=== PATIENT | female | born 2000 | race Caucasian/White ===

== ENCOUNTER 2021-08-25 08:46 | Emergency (ER) | payer OTHER, SELFPAY ==
[2021-08-25 08:57] VITALS: BP 132/77; PULSE 101; RESP 16; TEMP 37.5; O2SAT 99
--- NOTE | 2021-08-25 09:09 | ED.URI ---
HPI - URI/Sore Throat General Chief Complaint: Upper Respiratory Infection Stated Complaint: sore throat Time Seen by Provider: 08/25/21 09:11 Source: patient and RN notes reviewed Mode of arrival: ambulatory Limitations: no limitations History of Present Illness HPI Narrative: 21-year-old female presents with concern for nasal congestion, rhinorrhea, postnasal drainage, sore throat. Reports 3-day history of symptoms. She denies known sick contacts. She reports she is reports she is taken Sudafed with some relief of nasal congestion. MD elicited complaint: cough and sore throat Related Data Allergies Allergy/AdvReac Type Severity Reaction Status Date / Time SEASONAL ALLERGENS AdvReac Unknown Congested Uncoded 08/25/21 09:19 Review of Systems Review of Systems: CONSTITUTIONAL: Reports malaise. Denies chills, sweats, or fever. EYES: Denies visual changes, redness, or discharge. ENT: Reports rhinorrhea, congestion, sore throat. Denies sinus pain, otalgia CARDIOVASCULAR: Denies chest pain, palpitations, or edema. RESPIRATORY: Denies cough. Denies dyspnea. GASTROINTESTINAL: Denies abdominal pain, nausea, vomiting, diarrhea SKIN: Denies rash or itching. MUSCULOSKELETAL: Denies myalgia. NEUROLOGIC: Denies headache. All systems reviewed & are unremarkable except as noted in HPI and below PMFSH Comments At time of signature, agree with nursing past medical, surgical, social and family history. There is no relevant family history pertinent to the presenting complaint Exam Narrative: GENERAL: Well-appearing, well-nourished, and in no acute distress. HEAD: Normocephalic EYES: PERRLA, conjunctivae clear ENT: Nares clear, turbinates edematous and erythematous, clear discharge. Mucous membranes moist. TM pearly monterroso with sharp light reflex bilaterally; no tragal tenderness. Oropharynx not erythematous without lesions. Tonsils enlarged and without exudate, no drooling, no hoarseness, no trismus, uvula midline. NECK: Supple. No lymphadenopathy CHEST: Clear to auscultation, breath sounds equal. No wheezing, rhonchi, rales, or stridor. No respiratory distress, speaks in full sentences. HEART: Regular rate and rhythm. No murmur heard. SKIN: Warm, dry, no rash. NEURO: Alert and oriented x3. PSYCH: Normal mood and affect Course Course Emergency Course: Patient is aware of diagnosis, understands and agrees to treatment plan. Anticipatory guidance given. Patient agrees to follow-up as directed and is aware of reasons to seek care at the emergency department. Portions of this record may have been created with voice recognition software Level of Care: Express Care Visit Vital Signs Vital signs: Vital Signs Temperature 99.5 F 08/25/21 08:57 Pulse Rate 101 H 08/25/21 08:57 Respiratory Rate 16 08/25/21 08:57 Blood Pressure 132/77 08/25/21 08:57 Pulse Oximetry 99 08/25/21 08:57 Temperature 99.5 F 08/25/21 08:57 Pulse Rate 101 H 08/25/21 08:57 Respiratory Rate 16 08/25/21 08:57 Blood Pressure 132/77 08/25/21 08:57 Pulse Oximetry 99 08/25/21 08:57 Reviewed. MDM - URI/Sore Throat MDM Narrative Medical decision making narrative: Differential diagnosis considered: Crump virus, strep pharyngitis, allergic rhinitis, upper respiratory tract infection, sinusitis, rhinosinusitis, nasopharyngitis. viral pharyngitis, otitis media, otitis externa, pneumonia, bronchitis, viral cough syndrome, viral syndrome, and influenza. Exam findings show no acute concerns or changes; patient is non-toxic appearing and is in no distress. Patient is appropriate for outpatient treatment and follow-up. Lab Data Attestation: I reviewed the patient's lab results. Critical Care Time Critical Care Time Critical Care Time: No Discharge Plan Discharge Clinical Impression: Upper respiratory infection Qualifiers: URI type: unspecified viral URI Qualified Code(s): J06.9 - Acute upper respiratory infection, unspecified Patient Disposi
[2021-08-26 13:42] LABS: SARS-CoV-2 RNA PCR Negative
== END 2021-08-25 09:50 | disposition home or self-care (01) ==
PROVIDERS: Emergency Provider Nurse Practitioner; PCP Family Medicine
DX: J06.9 Acute upper respiratory infection, unspecified (principal); Z20.822 Contact with and (suspected) exposure to COVID-19
CPT/HCPCS: 87081; 87426; 87880; 99213; C9803; G0463; U0003; U0005

== ENCOUNTER 2021-09-12 09:10 | Emergency (ER) | payer OTHER, SELFPAY ==
--- NOTE | ~2021-09-12 | XR_ITS ---
XR foot LT min 3V DATE: 09/12/2021 10:36 INDICATION: Fall today. Left great toe pain TECHNIQUE: 4 views COMPARISON: None FINDINGS: There is a linear oblique fracture through the proximal to mid shaft of the distal phalanx of the first digit, with no displacement or angulation. No other fracture or dislocation, periosteal reaction or bone destruction is detected. IMPRESSION: Linear nondisplaced fracture of the distal phalanx of the first toe Reviewed, dictated and finalized at location A. TEMPERER
--- NOTE | ~2021-09-12 | XR_ITS ---
XR ankle RT min 3V DATE: 09/12/2021 10:36 INDICATION: Fall. Right ankle and foot injury, pain TECHNIQUE: 4 views COMPARISON: None FINDINGS: There is mild lateral soft tissue swelling. No fracture or dislocation of the ankle or disr uption of the ankle mortise is detected. IMPRESSION: Mild lateral soft tissue swelling Reviewed, dictated and finalized at location A. T CLERK
[2021-09-12 09:20] VITALS: BP 142/91; PULSE 91; RESP 16; TEMP 36.6; O2SAT 99
--- NOTE | 2021-09-12 11:11 | ED.LOWEXIN ---
HPI - Extremity Injury (Lower) General Chief Complaint: Fall Stated Complaint: right ankle pain Time Seen by Provider: 09/12/21 11:03 Source: patient and RN notes reviewed Mode of arrival: ambulatory Limitations: no limitations History of Present Illness HPI Narrative: Patient presents today complaining of an injury to her right ankle and left great toe. Patient tripped while walking her dog at 730 this morning, rolled her ankle and heard a pop. Denies numbness or tingling in either area. Currently rates her pain 5/10 and has been applying ice and taking Tylenol with some relief. Pain increases with ambulation. MD complaint: ankle injury and foot injury Related Data Allergies Allergy/AdvReac Type Severity Reaction Status Date / Time SEASONAL ALLERGENS AdvReac Unknown Congested Uncoded 08/25/21 09:19 Review of Systems Review of Systems: CONSTITUTIONAL: Denies body aches, fever, chills, or sweats. EYES: Denies visual changes, redness, or discharge. ENT: Denies rhinorrhea, congestion, sore throat, or otalgia. CARDIOVASCULAR: Denies chest pain, palpitations, or edema. RESPIRATORY: Denies cough or dyspnea. GASTROINTESTINAL: Denies abdominal pain, nausea, vomiting, or diarrhea. GENITOURINARY: Denies dysuria or hematuria. SKIN: Denies rash, itching, or wounds. MUSCULOSKELETAL: Denies back pain, or myalgia. + Right ankle pain, left great toe pain NEUROLOGIC: Denies headache, numbness, tingling, or weakness. PSYCH: Denies depression or anxiety. PMFSH Comments At time of signature, I have reviewed and agree with nursing past medical, surgical, social and family history unless otherwise noted. Please see nursing chart for further information. There is no relevant family history pertinent to the presenting complaint Exam Narrative: GENERAL: Well-appearing, well-nourished, and in no acute distress. HEAD: Normocephalic, atraumatic. EYES: EOMI. No redness or drainage. Conjunctivae normal. ENT: Mucous membranes pink and moist. NECK: Normal AROM. CHEST: No respiratory distress. EXTREMITIES: Right ankle: Tenderness and mild edema laterally. No pain medially. No pain to the foot. Distal sensation intact. Capillary refill normal. Pedal pulse normal. Full range of motion of the ankle with increased pain laterally. Left great toe: Tenderness and mild ecchymosis to the interphalangeal joint. Mild edema. Distal sensation intact. Capillary refill normal. Decreased range of motion due to pain. Very mild subungual hematoma. SKIN: Warm, dry, no rash. Capillary refill normal. Normal skin turgor. NEURO: No focal deficits. Alert and oriented x3. Gait steady. PSYCH: Normal affect. No signs of depression or anxiety. Course Course Emergency Course: Declines Tyrone wrap and a postop shoe Level of Care: Express Care Visit Vital Signs Vital signs: Vital Signs Temperature 97.9 F 09/12/21 09:20 Pulse Rate 91 09/12/21 09:20 Respiratory Rate 16 09/12/21 09:20 Blood Pressure 142/91 H 09/12/21 09:20 Pulse Oximetry 99 09/12/21 09:20 Temperature 97.9 F 09/12/21 09:20 Pulse Rate 91 09/12/21 09:20 Respiratory Rate 16 09/12/21 09:20 Blood Pressure 142/91 H 09/12/21 09:20 Pulse Oximetry 99 09/12/21 09:20 Reviewed. Pt has been instructed to follow up with her PCP regarding her elevated blood pressure today. MDM - Extremity Injury (Lower) Differential Diagnosis Differential diagnosis: Likely ankle sprain and strain and other (Toe fracture, contusion, ankle fracture, subungual hematoma) Imaging Data Radiologist's impression: ITS Impressions Ankle X-Ray 09/12/21 10:37 IMPRESSION: Mild lateral soft tissue swelling Foot X-Ray 09/12/21 10:38 IMPRESSION: Linear nondisplaced fracture of the distal phalanx of the first toe Critical Care Time Critical Care Time Critical Care Time: No Discharge Plan Discharge Clinical Impression: Right ankle sprain Qualifiers: Encounter type: ini
== END 2021-09-12 11:28 | disposition home or self-care (01) ==
PROVIDERS: Emergency Provider Nurse Practitioner
DX: S93.401A Sprain of unspecified ligament of right ankle, initial encounter (principal); S92.425A Nondisplaced fracture of distal phalanx of left great toe, initial encounter for closed fracture; W01.0XXA Fall on same level from slipping, tripping and stumbling without subsequent striking against object, initial encounter; Y93.K1 Activity, walking an animal
CPT/HCPCS: 73610; 73630; 99213; G0463

== ENCOUNTER 2021-12-31 16:15 | Emergency (ER) | payer OTHER, SELFPAY ==
[2021-12-31 16:26] VITALS: BP 123/81; PULSE 91; RESP 16; TEMP 37.6; O2SAT 99
--- NOTE | 2021-12-31 16:30 | ED.GENADULT ---
HPI - General Adult General Chief complaint: Wound/Laceration Stated complaint: Wasp Sting Time Seen by Provider: 12/31/21 16:30 Source: patient Mode of arrival: ambulatory Limitations: no limitations History of Present Illness HPI narrative: 21-year-old female presents with wasp sting to left upper arm. States that happened last night. Reports that redness is getting worse. Has some mild itching. Did apply hydrocortisone cream yesterday. Is concerned she is having an allergic reaction due to increase in redness. She is having no difficulty breathing or swallowing. She has not taken any Benadryl. All systems reviewed and negative except as noted above. Related Data Allergies Allergy/AdvReac Type Severity Reaction Status Date / Time SEASONAL ALLERGENS AdvReac Unknown Congested Uncoded 12/31/21 16:18 Review of Systems Review of Systems: CONSTITUTIONAL: Denies fever, chills, or sweats. EYES: Denies visual changes, redness, or discharge. ENT: Denies rhinorrhea, congestion, sore throat, or otalgia. CARDIOVASCULAR: Denies chest pain, palpitations, or edema. RESPIRATORY: Denies cough or dyspnea. GASTROINTESTINAL: Denies abdominal pain, nausea, vomiting, or diarrhea. GENITOURINARY: Denies dysuria or hematuria. SKIN: Denies rash or itching. Reports redness, swelling, itching after wasp sting. MUSCULOSKELETAL: Denies back pain, joint pain, or myalgia. NEUROLOGIC: Denies headache, numbness, or weakness. PSYCHIATRIC: Denies anxiety or depression. All other systems reviewed are negative, except as documented in HPI. PMFSH Comments At time of signature, agree with nursing past medical, surgical, social and family history. There is no relevant family history pertinent to the presenting complaint. Exam Narrative: GENERAL: This is a well-nourished, well-developed patient, in no apparent distress. HEAD: normocephalic, atraumatic. EYES: PERRL. Sclera clear/white. Vision is grossly intact. EARS: External ears normal NOSE: External nose normal NECK: Neck supple, non-tender without lymphadenopathy, masses or thyromegaly. CARDIOVASCULAR: Regular rate and rhythm without murmurs, gallops, or rubs. RESPIRATORY: Clear to auscultation. Breath sounds equal bilaterally. No wheezes, rales, or rhonchi. SKIN: warm, Dry, intact with no suspicious lesions or rash, good texture and turgor. There is an area of erythema approximately 8 cm x 6 cm to the posterior aspect of left upper arm. There is no warmth. It is mildly swollen. No drainage or fluctuance. NEURO: awake, alert, and oriented to person, place and time. There were no obvious focal neurologic abnormalities. EXTREMITIES: Normal range of motion to all extremities. Course Course Level of Care: Express Care Visit Vital Signs Vital signs: Vital Signs Temperature 37.6 C H 12/31/21 16:26 Pulse Rate 91 12/31/21 16:26 Respiratory Rate 16 12/31/21 16:26 Blood Pressure 123/81 12/31/21 16:26 Pulse Oximetry 99 12/31/21 16:26 Temperature 37.6 C H 12/31/21 16:26 Pulse Rate 91 12/31/21 16:26 Respiratory Rate 16 12/31/21 16:26 Blood Pressure 123/81 12/31/21 16:26 Pulse Oximetry 99 12/31/21 16:26 Reviewed Medical Decision Making MDM Narrative Medical decision making narrative: Patient is aware of diagnosis, understands and agrees to treatment plan. Anticipatory guidance given. Patient agrees to follow-up as directed and is aware of reasons to seek care at the emergency department. Portions of this record may have been created with voice recognition software Differential Diagnosis Differential Diagnosis: Cellulitis, insect sting, contact dermatitis, eczema Vital Signs Vital Signs: Vital Signs Temperature 37.6 C H 12/31/21 16:26 Pulse Rate 91 12/31/21 16:26 Respiratory Rate 16 12/31/21 16:26 Blood Pressure 123/81 12/31/21 16:26 Pulse Oximetry 99 12/31/21 16:26 Temperature 37.6 C H 12/31/21 16:26 Pulse Rate 91 12/31/21 16:26 Res
== END 2021-12-31 16:40 | disposition home or self-care (01) ==
PROVIDERS: Emergency Provider Nurse Practitioner Family; PCP Family Medicine
DX: S40.862A Insect bite (nonvenomous) of left upper arm, initial encounter (principal); W57.XXXA Bitten or stung by nonvenomous insect and other nonvenomous arthropods, initial encounter
CPT/HCPCS: 99213; G0463

== ENCOUNTER 2022-02-13 09:44 | Emergency (ER) | payer OTHER, SELFPAY ==
[2022-02-13 09:50] VITALS: BP 117/75; PULSE 107; RESP 16; TEMP 36.4; O2SAT 99
--- NOTE | 2022-02-13 09:58 | ED.URI ---
HPI - URI/Sore Throat General Chief Complaint: Upper Respiratory Infection Stated Complaint: Sore throat Time Seen by Provider: 02/13/22 09:49 History of Present Illness HPI Narrative: 21 y/o female presented for c/o sore throat for 3 days. States she felt like fever broke during the night. Denies headache, ear pain, n/v, cough or dizziness. Endorses history of enlarged tonsils. Has not taken anything for symptoms. Related Data Allergies Allergy/AdvReac Type Severity Reaction Status Date / Time SEASONAL ALLERGENS AdvReac Unknown Congested Uncoded 12/31/21 16:18 Review of Systems Review of Systems: CONSTITUTIONAL: Denies body aches, fever, chills, or sweats. EYES: Denies visual changes, redness, or discharge. ENT: Denies rhinorrhea, congestion, or otalgia. CARDIOVASCULAR: Denies chest pain, palpitations, or edema. RESPIRATORY: Denies dyspnea. GASTROINTESTINAL: Denies abdominal pain, nausea, vomiting, or diarrhea. SKIN: Denies rash, itching, or wounds. MUSCULOSKELETAL: Denies back pain, joint pain, or myalgia. NEUROLOGIC: Denies headache Exam Narrative: GENERAL: Ill-appearing, no acute distress. EYES: conjunctivae clear ENT: Mucous membranes moist. TM pearly monterroso with normal light reflex bilaterally; no tragal tenderness. Oropharynx erythematous without lesions. Tonsils enlarged 3+ with white patches, no drooling, no hoarseness, no trismus, uvula midline. Muffled voice. NECK: Supple. No lymphadenopathy CHEST: Clear to auscultation, breath sounds equal. No respiratory distress, speaks in full sentences. HEART: Regular rate and rhythm. No murmur heard. SKIN: Warm, dry, no rash. NEURO: Alert and oriented x3. Course Course Emergency Course: Patient is aware of diagnosis, understands and agrees to treatment plan. Anticipatory guidance given. Patient agrees to follow-up as directed and is aware of reasons to seek care at the emergency department. Portions of this record may have been created with voice recognition software Level of Care: Express Care Visit Vital Signs Vital signs: Vital Signs Temperature 97.6 F 02/13/22 09:50 Pulse Rate 107 H 02/13/22 09:50 Respiratory Rate 16 02/13/22 09:50 Blood Pressure 117/75 02/13/22 09:50 Pulse Oximetry 99 02/13/22 09:50 Oxygen Delivery Room Air 02/13/22 09:50 Temperature 97.6 F 02/13/22 09:50 Pulse Rate 107 H 02/13/22 09:50 Respiratory Rate 16 02/13/22 09:50 Blood Pressure 117/75 02/13/22 09:50 Pulse Oximetry 99 02/13/22 09:50 Oxygen Delivery Room Air 02/13/22 09:50 MDM - URI/Sore Throat MDM Narrative Medical decision making narrative: negative strep result reviewed with pt. Advise supportive treatments. Patient is appropriate for outpatient treatment and follow-up. Differential Diagnosis Differential diagnosis: Likely upper respiratory infection, viral infection and pharyngitis Discharge Plan Discharge Clinical Impression: Acute tonsillitis Qualifiers: Pharyngitis/tonsillitis etiology: unspecified etiology Qualified Code(s): J03.90 - Acute tonsillitis, unspecified Patient Disposition: Home, Self-Care Condition: Stable Instructions: Antibiotic Form, Tonsillitis (ED) Additional Instructions: Rapid strep swab was negative today You will be notified in a few days if the culture comes back positive for strep if symptoms are due to a viral illness, it is not treated with antibiotics. Viral symptoms can be present for up to 10-14 days. Recommend Zyrtec for sinus congestion Take steroid and antibiotic as directed Tylenol 1000mg every 8 hours as needed for pain/fever Soft foods, cool liquids, warm tea. Gargle with warm saltwater twice a day. Chloraseptic spray and throat lozenges as needed. Rest and stay hydrated. --Follow up with your PCP if symptoms are not improving, or sooner if symptoms are worsening. Go to the ER immediately if you cannot swallow your saliva, trouble breathing/wheezing, throat swelling,
== END 2022-02-13 10:11 | disposition home or self-care (01) ==
PROVIDERS: Emergency Provider Nurse Practitioner Family; PCP Family Medicine
DX: J03.90 Acute tonsillitis, unspecified (principal)
CPT/HCPCS: 87081; 87880; 99213; G0463

== ENCOUNTER 2022-06-05 10:13 | Emergency (ER) | payer OTHER, SELFPAY ==
[2022-06-05 10:41] VITALS: BP 132/91; PULSE 91; RESP 16; TEMP 37.3; O2SAT 99
--- NOTE | 2022-06-05 10:56 | ED.SKABFB ---
HPI - Skin/Abscess/Foreign Bdy General Chief complaint: Animal Bite Stated complaint: injury Time Seen by Provider: 06/05/22 10:50 Source: patient and RN notes reviewed Mode of arrival: ambulatory Limitations: no limitations History of Present Illness HPI narrative: 22-year-old female presents with concern for dog bite to her right forearm. 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 Reports the dog was up-to-date on his vaccinations as far she knows. Reports she is up-to-date on her tetanus vaccination. She reports a small wound to her inner forearm and a very superficial wound outer forearm. She denies any decree strength, sensation, range of motion in the arm or hand. She reports mild tenderness around the wound. MD complaint: other (Dog bite) Related Data Home Medications Medication Instructions Recorded Confirmed No Home Medications 04/02/22 06/05/22 Allergies Allergy/AdvReac Type Severity Reaction Status Date / Time SEASONAL ALLERGENS AdvReac Unknown Congested Uncoded 06/05/22 10:54 Review of Systems Review of Systems: CONSTITUTIONAL: Denies malaise, chills, sweats, or fever. SKIN: Reports laceration to the right forearm MUSCULOSKELETAL: Denies muscle skeletal pain NEUROLOGIC: Denies numbness, weakness All systems reviewed & are unremarkable except as noted in HPI and below PMFSH Past Medical History Medical History (Updated 06/05/22 @ 11:00 by Michelle Peterson NP) Obesity Family History Family History Mother Hypertension Social History Social History Smoking status: Never smoker Second hand tobacco smoke exposure: No Alcohol intake: never Substance use: never Substance use type: does not use Gender identity (if verbalized by the patient): Female Sexual Orientation (if Verbalized by the Patient): Straight or Heterosexual Comments At time of signature, agree with nursing past medical, surgical, social and family history. There is no relevant family history pertinent to the presenting complaint Exam Narrative: GENERAL: Well-appearing, well-nourished, and in no acute distress. HEAD: Normocephalic EYES: PERRLA, conjunctivae clear NECK: Supple. CHEST: Speaks in full sentences. No respiratory distress. HEART: Regular rate and rhythm. Normal and equal peripheral pulses. EXTREMITIES: Right arm andhand and digits of hand have normal strength and sensation. 5/5 strength with digit flexion, extension. Range of motion normal. Normal digital cascade with flexion of fingers, median, ulnar and radial nerve intact. Normal sensation of each side of finger. Can perform 'okay' sign, 'cross over finger test of index and middle fingers' and 'thumbs up' sign. No scissoring. Normal thumb opposition. Good capillary refill and radial pulse. Distal capillary refill less than 3 seconds. Patient is right/left hand dominant SKIN: Warn, dry, intact, pink. 1 cm superficial laceration noted to the inner forearm surrounded by a small amount of ecchymosis and tenderness. No induration, warmth noted. NEURO: Alert and oriented x3. PSYCH: Normal mood and affect Const: General: healthy appearing Course Course Emergency Course: Wound was cleansed, no signs of infection at this time. Signs and symptoms of infection discussed with patient and patient was encouraged to return for reevaluation if she notices the symptoms. Patient is aware of diagnosis, understands and agrees to treatment plan. Anticipatory guidance given. Patient agrees to follow-up as directed and is aware of reasons to seek care at the emergency department. Portions of this record may have been created with voice recognition software Level of Care: Express Care Visit Vital Signs Vital signs: Vital Signs Temperature 99.1 F 06/05/22 10:41 Pulse Rate 91 06/05/22 10:41 Respiratory Rate 16 06/05/22 10:41 Blood Pressu
== END 2022-06-05 11:06 | disposition home or self-care (01) ==
PROVIDERS: Emergency Provider Nurse Practitioner
DX: S51.811A Laceration without foreign body of right forearm, initial encounter (principal); W54.0XXA Bitten by dog, initial encounter; E66.9 Obesity, unspecified; Z68.41 Body mass index [BMI] 40.0-44.9, adult
CPT/HCPCS: 99212; G0463